=== PATIENT | male | born 1950 | race Caucasian/White ===

== ENCOUNTER 2017-05-18 09:13 | Inpatient (IN) ==
[2017-05-15 14:02] LABS: Basophils # (Auto) 0 K/mcL (0.0-0.3); Basophils % (Auto) 0.5 % (0.0-2.0); Eosinophils # (Auto) 0.2 K/mcL (0.0-0.7); Eosinophils % (Auto) 2.6 % (0.0-7.0); Granulocytes % (Auto) 72.1 % (38.0-78.0); Lymphocytes # (Auto) 0.8 K/mcL (1.5-4.8); Lymphocytes % (Auto) 12.4 % (15.5-49.0); Mean Cell Volume 85.3 fL (80.0-100.0); Mean Corpuscular HGB Conc 33.5 g/dL (31.0-36.0); Mean Corpuscular Hemoglobin 28.6 pg (26.0-34.0); Monocytes # (Auto) 0.8 K/mcL (0.1-0.9); Monocytes % (Auto) 12.4 % (1.0-12.0); Platelet Count 128 K/mcL (140-440); RBC 5.15 M/mcL (4.50-5.90); Red Cell Distribution Width 18.1 % (11.5-14.5)
[2017-05-15 14:23] LABS: Blood Urea Nitrogen 22 mg/dl (8-23)
[~2017-05-18 09:13] MED LIST: ACETAMINOPHEN 500 MG TABLET PO SCH; PREGABALIN 75 MG CAPSULE PO SCH; ceFAZolin 1 GM VIAL IV SCH; oxyCODONE 10 MG TAB.ER.12H PO SCH
[2017-05-18] MEDS ORDERED: IPRATROPIUM/ALBUTEROL 3 ML AMPUL.NEB NEB ONE ×2 (12:48→12:49)
[2017-05-18] MEDS ORDERED: KETAMINE 100 MG/ML ML IV ONE (13:00)
[2017-05-18] MEDS ORDERED: fentaNYL 250 MCG/5 ML VIAL IV ONE (13:00)
[2017-05-18] MEDS ORDERED: TRANEXAMIC ACID 1,000 MG/10 ML VIAL IV ONE (13:00)
[2017-05-18] MEDS ORDERED: DEXAMETHASONE 10 MG/ML VIAL IV ONE (13:00)
[2017-05-18] MEDS ORDERED: PROPOFOL 200 MG/20 ML VIAL IV ONE (13:00)
[2017-05-18] MEDS ORDERED: LIDOCAINE HCL/PF 100 MG/5 ML SYRINGE IV ONE (13:00)
[2017-05-18] MEDS ORDERED: ONDANSETRON 4 MG/2 ML VIAL IV ONE (13:00)
[2017-05-18] MEDS ORDERED: MIDAZOLAM 2 MG/2 ML VIAL IV ONE (13:00)
[2017-05-18] MEDS ORDERED: PHENYLEPHRINE 10 MG/ML VIAL IV ONE (13:00)
[2017-05-18] MEDS ORDERED: NALOXONE HCL 0.4 MG/ML VIAL IV PRN (14:14)
[2017-05-18] MEDS ORDERED: ePHEDrine 50 MG/ML AMPUL IV PRN (14:14)
[2017-05-18] MEDS ORDERED: ONDANSETRON 4 MG/2 ML VIAL IV PRN ×2 (14:14→14:53)
[2017-05-18] MEDS ORDERED: LACTATED RINGERS 250 ML IV PRN (14:14)
[2017-05-18] MEDS ORDERED: BENZOCAINE/MENTHOL 1 LOZENGE PO PRN ×2 (14:14→14:53)
[2017-05-18] MEDS ORDERED: PROMETHAZINE 25 MG/ML VIAL IM PRN (14:14)
[2017-05-18] MEDS ORDERED: MEPERIDINE 50 MG/ML SYRINGE IM PRN (14:14)
[2017-05-18] MEDS ORDERED: METHOCARBAMOL 1,000 MG/10 ML VIAL IV PRN (14:14)
[2017-05-18] MEDS ORDERED: diphenhydrAMINE 50 MG/ML VIAL IV PRN (14:14)
[2017-05-18] MEDS ORDERED: fentaNYL 100 MCG/2 ML VIAL IV PRN (14:14)
[2017-05-18] MEDS ORDERED: IPRATROPIUM/ALBUTEROL 3 ML AMPUL.NEB NEB PRN (14:14)
[2017-05-18] MEDS ORDERED: HYDROmorphone 2 MG/ML SYRINGE IV PRN ×2 (14:14→14:53)
[2017-05-18] MEDS ORDERED: PROMETHAZINE 25 MG/ML VIAL IV PRN (14:14)
[2017-05-18] MEDS ORDERED: FLUMAZENIL 0.1 MG/ML ML IV PRN (14:14)
[2017-05-18] MEDS ORDERED: MEPERIDINE 25 MG/ML SYRINGE IV PRN (14:14)
[2017-05-18] MEDS ORDERED: LACTATED RINGERS 1,000 ML IV SCH (14:15)
[2017-05-18] MEDS ORDERED: POLYETHYLENE GLYCOL 3350 17 GM PACKET PO PRN (14:53)
[2017-05-18] MEDS ORDERED: KETOROLAC 15 MG/ML VIAL IV PRN (14:53)
[2017-05-18] MEDS ORDERED: FLEETS ADULT ENEMA PR PRN (14:53)
[2017-05-18] MEDS ORDERED: ACETAMINOPHEN 325 MG TABLET PO PRN (14:53)
[2017-05-18] MEDS ORDERED: TRANEXAMIC ACID 1,000 MG/10 ML VIAL IV SCH (14:53)
[2017-05-18] MEDS ORDERED: BISACODYL 10 MG SUPP.RECT PR PRN (14:53)
[2017-05-18] MEDS ORDERED: MAGNESIUM HYDROXIDE 30 ML ORAL.SUSP PO PRN (14:53)
--- NOTE | 2017-05-18 14:53 | Brief Operative Note ---
Date of procedure: 05/18/17 Pre-op diagnosis: LEFt shoulder reverse loose base plate Post-op diagnosis: same Procedure: Left reverse tsa revision of both glenoid and head Grafts/Implants: Yes Anesthesia: GETA Findings: metal synovitis with loose glenoid Complications: none Complications Description: 05/18/17 14:53 none Surgeon: West Veloz Kiln Door Repairer: Trevor Gauthier Estimated blood loss (cc): 50 Specimens Removed/Pathology: none sent Condition: stable Disposition: PACU
[2017-05-18] MEDS ORDERED: BUPIVACAINE 0.5% 50 ML VIAL IJ ONE (15:08)
[2017-05-18] MEDS ORDERED: GENTAMICIN SULFATE 800 MG/20 ML VIAL IR ONE (15:08)
--- NOTE | 2017-05-18 15:17 | Operative Note ---
DATE OF OPERATION: 05/18/2017 PREOPERATIVE DIAGNOSIS: Left shoulder loose glenoid baseplate. POSTOPERATIVE DIAGNOSIS: Left shoulder loose glenoid baseplate. PROCEDURE: Left reverse total shoulder revision of the glenoid baseplate and the articular surface of the humeral head. SURGEON: West Veloz MD HEALTH SCIENCE SPECIALIST: Trevor Gauthier PA-C ANESTHESIA: General LMA anesthesia. COMPLICATIONS: None. DESCRIPTION OF PROCEDURE: The patient was brought to the operating room and put to sleep with general LMA anesthesia. Once the timeout had been performed, we confirmed the operative site. Preop antibiotics had been given, tranexamic acid given. We made an incision through his prior scar. A deltopectoral approach was performed. We identified the anterior joint which revealed quite a bit of metal debris. This was debrided. We retracted the capsule anteriorly. We dislocated the humerus and removed the humeral head fragment. We then removed the metal debris, which was quite extensive. We then removed the metaglene and glenosphere. The metaglene seemed to be loose. The head was removed as well as the screws. There was quite a bit of metal debris and cystic changes because of the loosening of the implant. We irrigated thoroughly and removed all components and then we placed a central pin aiming it posteriorly and achieving new bony purchase with this done and we bone grafted the sites. We irrigated thoroughly, bone grafted and then put bone putty. We placed a 36 mm central screw 6.5 with the baseplate that had excellent purchase. With this, we then placed 4 additional screw which were two 40s, a 36 and 32. Once these were all locked we then placed the glenosphere which was a +6 with 2 mm of these eccentricity, 40 mm diameter ball. Once tapped into place we irrigated thoroughly and then prepared the humeral head. We then sized this up to 10 mm humeral cup with an 8 mm poly. This seemed to give excellent tension throughout. We irrigated thoroughly and then reduced the shoulder and repaired the deltopectoral interval. Skin was closed with 2-0 Vicryl. We closed the skin with jamir and placed into a Donjoy sling. The patient tolerated this well without complication. RBH:robin Job ID: [id number] Doc ID: [id number] West Veloz MD
--- NOTE | 2017-05-18 15:55 | XRay Report ---
HISTORY: Reason for Exam:Post-Op Total Shoulder FINDINGS: There is a well-positioned left total shoulder prosthesis. This has been revised since the time of the prior x-ray done on 06/09/16. There is no fracture or dislocation. IMPRESSION: Well-positioned left shoulder prosthesis Interpreted and Authenticated by: Delvis Oswald 05/18/17
[2017-05-18] MEDS: 0.45 % SODIUM CHLORIDE 1,000 ML IV SCH (17:40)
[2017-05-18] MEDS: HYDROcodone/APAP 10/325MG TABLET PO PRN (18:25)
[2017-05-18 20:06] LABS: Appearance,Urine CLEAR; Bacteria,Urine 0 /hpf (0); Bilirubin,Urine NEG (NEG); Color,Urine YELLOW; Glucose,Urine (UA) >=500 mg/dL (NEG); Leukocyte Esterase,Urine NEG /uL (NEG); Mucus,Urine FEW /hpf (0); Nitrate,Urine NEG (NEG); Protein,Urine NEG (NEG); Specific Gravity,Urine 1.022 (1.000-1.035); Urine Blood NEG mg/dL (<0.03); Urine RBC 0 /hpf (0-1); Urine Squamous Epithelial Cell 0 /hpf (0-4); Urine WBC 1 /hpf (0-4)
[2017-05-18] MEDS: ceFAZolin 1 GM VIAL IV SCH (20:58)
[2017-05-18] MEDS: DOCUSATE SODIUM 100 MG CAPSULE PO SCH (20:59)
[2017-05-18] MEDS ORDERED: SENNOSIDES 1 TABLET PO SCH (21:00)
[2017-05-18] MEDS ORDERED: TEMAZEPAM 15 MG CAPSULE PO PRN (21:00)
[2017-05-18] MEDS: 0.9 % SODIUM CHLORIDE 10 ML SYRINGE IV SCH (21:11)
[2017-05-19] MEDS: 0.45 % SODIUM CHLORIDE 1,000 ML IV SCH ×2 (03:20→11:40)
[2017-05-19] MEDS ORDERED: cefTRIAXone 2 GM VIAL ONE (05:01)
[2017-05-19] MEDS: ceFAZolin 1 GM VIAL IV SCH (05:03)
--- NOTE | 2017-05-19 07:47 | Orthopedic Progress Note ---
Subjective Patient information: Note initiated : 05/19/17 at 7:45 am Service Date, if different from initiated Date: [] Patient: Mane Maurice 67 y/o M admitted on 05/18/17 for Left Revision of Reverse Total Shoulder Arthroplas. Chief Complaint: [Pt is stable this morning on post operative day 1 without any significant concerns or complaints. Patients vital signs have remained stable. Patients dressing is dry and exhibits a grossly intact neurovascular and neuromotor exam. Patients 10 point ROS is otherwise negative. ] Objective Vital signs: Vital Signs Temp Pulse Pulse Pulse Resp BP Pulse Ox 05/19/17 07:26 95 05/19/17 07:25 83 12 95 05/19/17 03:25 98.4 F 85 14 135/76 96 05/18/17 23:00 98.2 F 89 16 151/87 95 05/18/17 20:02 95 05/18/17 17:05 142/82 96 05/18/17 16:35 141/88 94 05/18/17 16:25 98.4 F 88 20 159/92 94 05/18/17 15:43 98.0 F 97 H 20 128/85 93 05/18/17 15:32 97.0 F 99 H 15 122/78 91 05/18/17 15:20 92 H 16 134/81 95 05/18/17 15:05 97.5 F 86 9 L 117/71 97 05/18/17 09:26 98.4 F 89 16 187/112 98 Intake and Output 05/18/17 05/19/17 05/19/17 21:59 05:59 13:59 Intake Total 1200 / 1200 1057 / 1057 Output Total 350 / 350 150 / 150 Balance 850 / 850 907 / 907 Intake: IV 900 / 900 967 / 967 Sodium Chloride 0.45% 1,000 ml 967 / 967 @ 100 mls/hr IV .Q10H [facility] Rx#: [id number] Oral 300 / 300 90 / 90 Output: Void Amount 100 / 100 150 / 150 Estimated Blood Loss 250 / 250 Other: Meal [place] sandwich Percent of Meal Consumed 100% Feeding Ability Independent Independent # Voids 1 1 Weight 200 lb 8 oz Intake & Output: Intake & Output 05/18/17 05/19/17 05/19/17 21:59 05:59 13:59 Intake Total 1200 / 1200 1057 / 1057 Output Total 350 / 350 150 / 150 Balance 850 / 850 907 / 907 Weight 200 lb 8 oz Intake: IV 900 / 900 967 / 967 Sodium Chloride 0.45% 1,000 ml 967 / 967 @ 100 mls/hr IV .Q10H [facility] Rx#: [id number] Oral 300 / 300 90 / 90 Output: Void Amount 100 / 100 150 / 150 Estimated Blood Loss 250 / 250 Other: Meal [place] sandwich Percent of Meal Consumed 100% Feeding Ability Independent Independent # Voids 1 1 Incision: Yes healing Incision clean and dry: Yes Dressing: Yes clean, Yes dry, Yes splint in place Weight bearing status: non Neurological exam IM: Yes motor sensory intact Extremities exam IM: Yes neurovascular intact - Labs CBC & BMP: 05/15/17 13:23 05/15/17 13:22 Labs: Orthopedic Labs 05/15/17 13:22 PT 14.1 INR 1.1 APTT 31 05/15/17 13:23 Hgb 14.7 Hct 43.9 Assessment and Plan (1) Hx of total shoulder replacement The patient has been educated regarding dressing care, Physical Therapy recommendations, home exercises, restrictions, and follow up appointments. The patient has had all necessary DME prescribed. The patient has remained stable during their hospital course. The patient was discharge with a stable exam. Shoulder immobilizer needs to remain intact for 6 weeks!!!!! Ok to do gentle codman and pendulum exercises on day 3 from surgery. Status: Acute
--- NOTE | 2017-05-19 07:49 | Discharge Summary ---
Ortho Discharge - TSA - Patient Instructions Diet: Regular Diet Activity: activity as tolerated, non weight bearing Total Shoulder Protocol: Leave immobilizer in place except for bathing and ROM. Abduction pillow. Continue to wear sling until seen by physician. Codman Pendulum : These exercises use momentum produced by your body to move your shoulder joint. Bend your knees and shift your weight to your front leg, then back, allowing your arm to swing in the same directions. Using the same technique, alternately shift your weight between your right and left legs, allowing your arm to swing from side to side. These exercises are also performed in counterclockwise and clockwise circular motions. Typically these exercises are performed several times per day, for a set number repetitions or minutes, such as 20 times in a row or 5 minutes at a time. Dressing Care: May shower in 3 days, Aquacel Ag - leave on for 5 days Patient Education: Joint Replacement Surgery (DC) - Problem Maintenance (1) Hx of total shoulder replacement Status: Acute Qualifiers: Laterality: left Qualified Code(s): Z96.612 - Presence of left artificial shoulder joint - Follow Up Plan Disposition: Home, Self-Care Prognosis: Good Rehab Potential: Good I certify that the patient requires SNF services: No Overall status at discharge: patient is progressing back to baseline - Orders For Discharge Prescriptions: Docusate Sodium [Colace] 100 mg PO BID #60 cap HYDROcodone/APAP 10/325MG [Turney 10/325Mg] 1 - 2 tab PO Q4HP PRN #75 tab PRN Reason: Pain
[2017-05-19] MEDS: DOCUSATE SODIUM 100 MG CAPSULE PO SCH (09:14)
[2017-05-19] MEDS: 0.9 % SODIUM CHLORIDE 10 ML SYRINGE IV SCH ×2 (09:15→12:22)
[2017-05-19] MEDS: HYDROcodone/APAP 10/325MG TABLET PO PRN ×2 (09:16→12:21)
== END 2017-05-19 13:11 | disposition home or self-care (01) | DRG 483 ==
LOC: SUR 09:13 → MEDSUR 14:57
PROVIDERS: ADMIT Orthopaedic Surgery; ATTEND Orthopaedic Surgery